=== PATIENT | male | born 1985 | race Caucasian/White ===

== ENCOUNTER 2017-08-16 21:13 | Emergency (ER) | payer MEDICAID, MEDICARE, OTHER ==
[~2017-08-16] VITALS: Ht 170.2 cm; Wt 77.1 kg
[~2017-08-16 21:13] MED LIST: ADV50100 IN; ALBU6.7H3 IH; ALBU8HFA IH; AMOX-115 PO; BENZ-16 PO; CEPH-571 PO; CLIN150C2 PO; GUAI600T PO; IBUP-1573 PO; IBUP-1984 PO; IVER3TAB2 PO; NAPR220C15 PO; NARDIL; PHEN15TA PO; PRED20TA PO
[2017-08-16] MEDS ORDERED: HYDR-3965 PO ×2 (22:07→22:13)
[2017-08-16 22:24] VITALS: BP 125/80
== END 2017-08-16 22:25 | disposition home or self-care (01) ==
LOC: ER 21:14
DX: M25.511 Pain in right shoulder (principal); G89.29 Other chronic pain; J45.909 Unspecified asthma, uncomplicated; F17.200 Nicotine dependence, unspecified, uncomplicated; Z79.899 Other long term (current) drug therapy; Z88.0 Allergy status to penicillin; Z88.1 Allergy status to other antibiotic agents; Z88.8 Allergy status to other drugs, medicaments and biological substances
CPT/HCPCS: 96372; 99283; J2270

== ENCOUNTER 2017-08-31 23:02 | Emergency (ER) | payer OTHER ==
[~2017-08-31] VITALS: Ht 170.2 cm; Wt 78.4 kg
[~2017-08-31 23:02] MED LIST changes: +HYDR-3965 PO
[2017-09-01] MEDS ORDERED: HYDROcodone/acetaminophen 10/325mg tab PO ONE (00:05)
[2017-09-01] MEDS ORDERED: orphenadrine citrate 60mg/2ml inj. IM ONE (00:05)
[2017-09-01] MEDS ORDERED: LIDO700A32 TOP (00:10)
[2017-09-01] MEDS ORDERED: DICL100G15 TOP (00:10)
[2017-09-01] MEDS ORDERED: CYCL-1 PO (00:10)
[2017-09-01] MEDS ORDERED: METH500T PO (01:14)
[2017-09-01 01:52] VITALS: BP 123/74
== END 2017-09-01 01:54 | disposition home or self-care (01) ==
LOC: ER 23:02
DX: M25.511 Pain in right shoulder (principal); J45.909 Unspecified asthma, uncomplicated; G89.29 Other chronic pain; Z88.1 Allergy status to other antibiotic agents; Z79.899 Other long term (current) drug therapy; Z56.0 Unemployment, unspecified
CPT/HCPCS: 96372; 99283; J2360

== ENCOUNTER 2018-08-05 07:11 | Day surgery (SDC) | payer MEDICARE, MEDICAID ==
[2018-08-02 15:21] LABS: BASOPHILS # (AUTO) 0.1 X10'3 (0-0.2); BASOPHILS % (AUTO) 0.8 % (0-1); EOSINOPHILS # (AUTO) 0.3 X10'3 (0-0.9); EOSINOPHILS % (AUTO) 4.4 % (0-6); LYMPHOCYTES # (AUTO) 1.9 X10'3 (1.1-4.8); MEAN CORPUSCULAR HEMOGLOBIN 32.5 PG (27.0-31.0); MEAN CORPUSCULAR HGB CONC 34.3 % (33.0-36.5); MEAN CORPUSCULAR VOLUME 94.7 FL (78-98); MEAN PLATELET VOLUME 7.8 FL (7.4-10.4); MONOCYTES # (AUTO) 0.5 X10'3 (0-0.9); MONOCYTES % (AUTO) 6.5 % (2-12); NEUTROPHILS # (AUTO) 4.6 X10'3 (1.8-7.7); NEUTROPHILS % (AUTO) 62.3 % (42-75); PRE OP HEMATOCRIT 50.7 % (42.0-52.0); PRE OP HEMOGLOBIN 17.4 g/dL (14.0-17.9); PRE OP PLATELET COUNT 264 X10'3 (140-440); RED BLOOD COUNT 5.35 X10'6 (4.70-6.10); RED CELL DISTRIBUTION WIDTH 11.9 % (11.5-14.5)
[2018-08-02 15:25] LABS: CLARITY,URINE CLEAR (Clear); COLOR,URINE YELLOW (Yellow); GLUCOSE, URINE NEGATIVE (Neg); KETONES,URINE NEGATIVE (Neg); LEUKOCYTE ESTERASE ,URINE NEGATIVE (Neg); NITRITES, URINE NEGATIVE (Neg); OCCULT BLOOD,URINE NEGATIVE (Neg); PROTEIN,URINE NEGATIVE (Neg); UROBILINOGEN,URINE 0.2 E.U/dL (0.2-1.0)
[2018-08-02 15:28] LABS: UA COLLECTION TYPE CLN CATCH MIDSTREAM
[2018-08-02 15:31] LABS: ALBUMIN 3.9 G/DL (3.4-5.0); ALBUMIN/GLOBULIN RATIO 1.1 (1.1-1.5); ALKALINE PHOSPHATASE 63 IU/L (46-116); BLOOD UREA NITROGEN 21 MG/DL (7-18); BUN/CREATININE RATIO 26.6 (5.4-32.0); CHLORIDE 103 MMOL/L (99-107); CREATININE 0.79 MG/DL (0.60-1.10); PRE OP ALT 48 U/L (30-65); PRE OP ANION GAP 5 (8-16); PRE OP AST 24 U/L (10-37); PRE OP BILIRUB, TOTAL 0.5 MG/DL (0.0-1.0); PRE OP GLUCOSE 92 MG/DL (70-104); PRE OP SODIUM 140 MMOL/L (135-145); TOTAL CARBON DIOXIDE 32.3 MMOL/L (24-32); TOTAL PROTEIN 7.4 G/DL (6.4-8.2); eGFR > 90 ML/MIN
[~2018-08-05] VITALS: Ht 170.2 cm; Wt 82.7 kg
[2018-08-05] VITALS (11 sets, daily range): BP systolic 120–167; BP diastolic 74–97
[~2018-08-05 07:11] MED LIST changes: -ADV50100 IN; -ALBU6.7H3 IH; -ALBU8HFA IH; -AMOX-115 PO; -BENZ-16 PO; -CEPH-571 PO; -CLIN150C2 PO; +DICL100G15 TOP; +FLO0.4C PO; -GUAI600T PO; -HYDR-3965 PO; -IBUP-1984 PO; -IVER3TAB2 PO; +LORA-269 PO; -NAPR220C15 PO; -NARDIL; -PHEN15TA PO; -PRED20TA PO; +TRAN10TA PO; +cefazolin/dext.iso 2gm/50ml 50 ML IV ONE; +famotidine 20mg tablet PO ONE; +ringers solution, lacted 1,000 ML IV SCH
[2018-08-05] MEDS ORDERED: LIDOcaine 1% (10mg/ml) 2ml vial ONE (07:33)
[2018-08-05] MEDS ORDERED: sevoflurane 250ml liquid IH ONE (09:50)
[2018-08-05] MEDS ORDERED: midazolam 2 mg/2 ml injection ONE (09:53)
[2018-08-05] MEDS ORDERED: fentaNYL/PF 50MCG/1 ML 2ML syringe ONE ×2 (09:53→10:55)
--- NOTE | 2018-08-05 11:00 | NUR ---
Received from OR via bed, accompanied by Anesthesiologist. Report received. Initial physical assessment done and recorded.
[2018-08-05] MEDS ORDERED: HYDROmorphone inj. 0.5 MG/0.5 ML DISP.SYRIN IV PRN ×2 (11:05)
[2018-08-05] MEDS ORDERED: ringers solution, lacted 1,000 ML IV SCH (11:05)
[2018-08-05] MEDS ORDERED: morphine 4 MG/ML inj SYRINge IV PRN ×2 (11:05)
[2018-08-05] MEDS ORDERED: ondansetron/PF 4mg/2ml inj IV PRN (11:05)
[2018-08-05] MEDS ORDERED: dexamethasone sod phosphate 4mg/ml inj. ONE (11:09)
[2018-08-05] MEDS ORDERED: rocuronium 10mg/ml inj IV ONE (11:09)
[2018-08-05] MEDS ORDERED: neostigmine methylsulfate 1 MG/ML 10ml vial ONE (11:09)
[2018-08-05] MEDS ORDERED: LIDOcaine 2% (20mg/ml) 5ml vial ONE (11:09)
[2018-08-05] MEDS ORDERED: glycopyrrolate 0.2mg/ml inj ONE (11:09)
[2018-08-05] MEDS ORDERED: propofol inj 20 ML IV ONE (11:09)
[2018-08-05] MEDS ORDERED: ondansetron/PF 4mg/2ml inj ONE (11:09)
[2018-08-05] MEDS ORDERED: HYDROcodone/acetaminophen 10/325mg tab PO ONE (11:20)
--- NOTE | 2018-08-05 12:30 | NUR ---
Discharge criteria met, discharge instructions given, demonstrates verbal understanding. Discharged home in good condition.
== END 2018-08-05 12:30 | disposition home or self-care (01) ==
LOC: PAS 07:11
PROVIDERS: ATTEND Surgery
DX: K80.10 Calculus of gallbladder with chronic cholecystitis without obstruction (principal); F17.210 Nicotine dependence, cigarettes, uncomplicated; M19.90 Unspecified osteoarthritis, unspecified site; Z88.8 Allergy status to other drugs, medicaments and biological substances; Z79.899 Other long term (current) drug therapy; J45.909 Unspecified asthma, uncomplicated; G47.30 Sleep apnea, unspecified; Z91.018 Allergy to other foods
CPT/HCPCS: 36415; 47562; 80053; 81003; 85025; J0690; J1100; J2001; J2250; J2405; J2704; J2710; J3010; J3490; J7120; 88304; A6251; A7000

== ENCOUNTER 2018-12-04 12:27 | Emergency (ER) | payer MEDICARE, MEDICAID ==
[~2018-12-04] VITALS: Ht 170.2 cm; Wt 81.8 kg
[~2018-12-04 12:27] MED LIST changes: -cefazolin/dext.iso 2gm/50ml 50 ML IV ONE; -famotidine 20mg tablet PO ONE; -ringers solution, lacted 1,000 ML IV SCH
[2018-12-04 12:37] VITALS: BP 139/89
[2018-12-04] MEDS ORDERED: ipratropium/albuterol 3ml nebule NEB ONE (14:10)
[2018-12-04] MEDS ORDERED: PRED50TA PO (15:05)
[2018-12-04] MEDS ORDERED: ALBU18HF2 INH (15:05)
== END 2018-12-04 15:28 | disposition home or self-care (01) ==
LOC: ER 12:27
DX: J30.2 Other seasonal allergic rhinitis (principal); J45.909 Unspecified asthma, uncomplicated; G89.29 Other chronic pain; F17.200 Nicotine dependence, unspecified, uncomplicated; Z56.0 Unemployment, unspecified; Z88.2 Allergy status to sulfonamides; Z88.1 Allergy status to other antibiotic agents; Z79.899 Other long term (current) drug therapy; Z90.49 Acquired absence of other specified parts of digestive tract
CPT/HCPCS: 71046; 94640; 94760; 99283

== ENCOUNTER 2019-09-17 23:00 | Emergency (ER) | payer MEDICARE, MEDICAID ==
[~2019-09-17] VITALS: Ht 167.6 cm; Wt 86.8 kg
[~2019-09-17 23:00] MED LIST changes: +ALBU18HF2 INH; +PRED50TA PO
[2019-09-17] MEDS ORDERED: ondansetron/PF 4mg/2ml inj IV ONE (23:25)
[2019-09-17] MEDS ORDERED: morphine 4 MG/ML inj SYRINge IV ONE (23:25)
--- NOTE | 2019-09-17 23:30 | NUR ---
U/S CALLED BACK AT [address]
[2019-09-18] MEDS ORDERED: CefTRIAXone 250MG IM Kit w/LIDOcaine IM ONE (00:30)
[2019-09-18] MEDS ORDERED: DOXY100C77 PO (00:45)
[2019-09-18 01:08] VITALS: BP 160/87
== END 2019-09-18 01:10 | disposition home or self-care (01) ==
LOC: ER 23:01
DX: N45.1 Epididymitis (principal); J45.909 Unspecified asthma, uncomplicated; G89.29 Other chronic pain; Z56.0 Unemployment, unspecified; Z90.49 Acquired absence of other specified parts of digestive tract; Z88.1 Allergy status to other antibiotic agents; Z79.899 Other long term (current) drug therapy; Z88.8 Allergy status to other drugs, medicaments and biological substances
CPT/HCPCS: 76870; 96372; 96374; 96375; 99285; J0696; J2270; J2405

== ENCOUNTER 2020-02-06 22:45 | Emergency (ER) | payer MEDICARE, MEDICAID ==
[~2020-02-06] VITALS: Ht 170.2 cm; Wt 88.6 kg
[2020-02-06 23:30] LABS: CLARITY,URINE CLEAR (Clear); COLOR,URINE YELLOW (Yellow); GLUCOSE, URINE NEGATIVE (Neg); KETONES,URINE NEGATIVE (Neg); LEUKOCYTE ESTERASE ,URINE NEGATIVE (Neg); NITRITES, URINE NEGATIVE (Neg); OCCULT BLOOD,URINE NEGATIVE (Neg); PROTEIN,URINE NEGATIVE (Neg); UROBILINOGEN,URINE 0.2 E.U/dL (0.2-1.0)
[2020-02-06 23:31] LABS: UA COLLECTION TYPE CLN CATCH MIDSTREAM
--- NOTE | 2020-02-07 01:09 | NUR ---
dr valera in room.
[2020-02-07] MEDS ORDERED: normal saline 1000ML IV soln IVB ONE (01:15)
[2020-02-07] MEDS ORDERED: acetaminophen 325mg tablet PO STA (01:16)
[2020-02-07] MEDS ORDERED: morphine 4 MG/ML inj SYRINge IV ONE (01:20)
[2020-02-07 01:59] LABS: BASOPHILS # (AUTO) 0.1 X10'3 (0-0.2); HEMOGLOBIN 16.5 g/dl (14.0-17.9); MEAN PLATELET VOLUME 7.3 FL (7.4-10.4); RED BLOOD COUNT 4.96 X10'6 (4.70-6.10); WHITE BLOOD COUNT 11.6 X10'3 (4.5-11.0)
[2020-02-07 02:01] LABS: BASOPHILS % (AUTO) 0.7 % (0-1); EOSINOPHILS # (AUTO) 0.5 X10'3 (0-0.9); HEMATOCRIT 46.7 % (42.0-52.0); LYMPHOCYTES # (AUTO) 3.4 X10'3 (1.1-4.8); LYMPHOCYTES % (AUTO) 29.1 % (21-51); MEAN CORPUSCULAR HEMOGLOBIN 33.2 PG (27.0-31.0); MEAN CORPUSCULAR HGB CONC 35.3 g/dL (33.0-36.5); MEAN CORPUSCULAR VOLUME 94.1 FL (78-98); MONOCYTES % (AUTO) 8.5 % (2-12); NEUTROPHILS # (AUTO) 6.7 X10'3 (1.8-7.7); NEUTROPHILS % (AUTO) 57.7 % (42-75); PLATELET COUNT 290 X10'3 (140-440)
[2020-02-07 02:07] LABS: ALANINE AMINOTRANSFERASE 30 U/L (12-78); ALBUMIN 3.7 G/DL (3.4-5.0); ALBUMIN/GLOBULIN RATIO 0.9 (1.1-1.5); ALKALINE PHOSPHATASE 81 IU/L (46-116); ANION GAP 5 (8-16); ASPARTATE AMINO TRANSFERASE 12 U/L (10-37); BILIRUBIN,TOTAL 0.4 MG/DL (0.1-1.0); BLOOD UREA NITROGEN 17 MG/DL (7-18); CALCIUM 8.5 MG/DL (8.5-10.1); CHLORIDE 106 MMOL/L (99-107); CREATININE 0.81 MG/DL (0.60-1.10); GLUCOSE 84 MG/DL (70-104); SODIUM 140 MMOL/L (135-145); TOTAL CARBON DIOXIDE 28.7 MMOL/L (24-32); TOTAL PROTEIN 7.6 G/DL (6.4-8.2); eGFR > 90 ML/MIN
[2020-02-07] MEDS: morphine 2 MG/ML inj. syringe IV PRN ×4 (02:42→05:05)
[2020-02-07] MEDS ORDERED: clindamycin 150mg capsule PO ONE (02:45)
[2020-02-07] MEDS ORDERED: DOXY-327 PO (05:12)
[2020-02-07] MEDS ORDERED: TRAN10TA2 PO (05:12)
[2020-02-07] MEDS ORDERED: DIAZ5TAB5 PO (05:12)
[2020-02-07] MEDS ORDERED: IBUP-1985 PO (05:12)
[2020-02-07] MEDS ORDERED: HYDR-3972 PO (05:12)
[2020-02-07] MEDS ORDERED: CLIN-97 PO (05:49)
[2020-02-07] MEDS ORDERED: HYDROcodone/acetaminophen 10/325mg tab PO ONE (05:55)
[2020-02-07 06:32] VITALS: BP 151/83
== END 2020-02-07 06:36 | disposition home or self-care (01) ==
LOC: ER 22:45
DX: T81.49XA Infection following a procedure, other surgical site, initial encounter (principal); N50.82 Scrotal pain; J45.909 Unspecified asthma, uncomplicated; G89.29 Other chronic pain; F41.9 Anxiety disorder, unspecified; F31.9 Bipolar disorder, unspecified; F17.200 Nicotine dependence, unspecified, uncomplicated; Z90.49 Acquired absence of other specified parts of digestive tract; Z98.890 Other specified postprocedural states; Z72.89 Other problems related to lifestyle; Z56.0 Unemployment, unspecified; Z79.2 Long term (current) use of antibiotics; Z79.899 Other long term (current) drug therapy
CPT/HCPCS: 36415; 76870; 80053; 81003; 83605; 84145; 85025; 87040; 87070; 87077; 87186; 93976; 96374; 96376; 99285; J2270; J7030; 96375

== ENCOUNTER 2020-02-23 08:50 | Day surgery (SDC) | payer MEDICARE, MEDICAID ==
[~2020-02-23 08:50] MED LIST changes: +CEFD300C3 PO; +DIAZ5TAB5 PO; -DICL100G15 TOP; -FLO0.4C PO; +HYDR-3972 PO; +HYDR-4383 PO; -IBUP-1573 PO; +IBUP-1985 PO; +LACT1CAP26 PO; -LORA-269 PO; -PRED50TA PO; -TRAN10TA PO; +TRAN10TA2 PO
[2020-02-23] MEDS ORDERED: LIDOcaine 2% 5ml jelly ONE (09:39)
== END 2020-02-23 10:00 | disposition home or self-care (01) ==
LOC: WOUND CARE 08:50
PROVIDERS: ATTEND Nurse Practitioner
DX: T81.89XA Other complications of procedures, not elsewhere classified, initial encounter (principal); L98.492 Non-pressure chronic ulcer of skin of other sites with fat layer exposed; M19.90 Unspecified osteoarthritis, unspecified site; N43.3 Hydrocele, unspecified; G89.29 Other chronic pain; G47.31 Primary central sleep apnea; J45.909 Unspecified asthma, uncomplicated; F32.9 Major depressive disorder, single episode, unspecified; F41.8 Other specified anxiety disorders; F17.210 Nicotine dependence, cigarettes, uncomplicated; Z86.14 Personal history of Methicillin resistant Staphylococcus aureus infection; Z90.49 Acquired absence of other specified parts of digestive tract; Z79.899 Other long term (current) drug therapy; Z79.2 Long term (current) use of antibiotics; Z98.890 Other specified postprocedural states; Y83.8 Other surgical procedures as the cause of abnormal reaction of the patient, or of later complication, without mention of misadventure at the time of the procedure; Y92.238 Other place in hospital as the place of occurrence of the external cause
CPT/HCPCS: 97597

== ENCOUNTER 2020-03-01 10:28 | Day surgery (SDC) | payer MEDICARE, MEDICAID ==
[2020-03-01] MEDS ORDERED: LIDOcaine 2% 5ml jelly ONE (10:53)
== END 2020-03-01 11:47 | disposition home or self-care (01) ==
LOC: WOUND CARE 10:28
PROVIDERS: ATTEND Nurse Practitioner
DX: T81.89XD Other complications of procedures, not elsewhere classified, subsequent encounter (principal); L98.492 Non-pressure chronic ulcer of skin of other sites with fat layer exposed; M19.90 Unspecified osteoarthritis, unspecified site; N43.3 Hydrocele, unspecified; G89.29 Other chronic pain; G47.31 Primary central sleep apnea; J45.909 Unspecified asthma, uncomplicated; F32.9 Major depressive disorder, single episode, unspecified; F41.8 Other specified anxiety disorders; F17.210 Nicotine dependence, cigarettes, uncomplicated; Z86.14 Personal history of Methicillin resistant Staphylococcus aureus infection; Z90.49 Acquired absence of other specified parts of digestive tract; Z79.899 Other long term (current) drug therapy; Z79.2 Long term (current) use of antibiotics; Z98.890 Other specified postprocedural states; Y83.8 Other surgical procedures as the cause of abnormal reaction of the patient, or of later complication, without mention of misadventure at the time of the procedure
CPT/HCPCS: 97597

== ENCOUNTER 2020-03-22 10:39 | Day surgery (SDC) | payer MEDICARE, MEDICAID | END 2020-03-22 11:34 | disposition home or self-care (01) | LOC: WOUND CARE 10:39 | PROVIDERS: ATTEND Nurse Practitioner | DX: T81.89XD Other complications of procedures, not elsewhere classified, subsequent encounter (principal); L98.492 Non-pressure chronic ulcer of skin of other sites with fat layer exposed; M19.90 Unspecified osteoarthritis, unspecified site; N43.3 Hydrocele, unspecified; G89.29 Other chronic pain; G47.31 Primary central sleep apnea; J45.909 Unspecified asthma, uncomplicated; F32.9 Major depressive disorder, single episode, unspecified; F41.8 Other specified anxiety disorders; F17.210 Nicotine dependence, cigarettes, uncomplicated; Z86.14 Personal history of Methicillin resistant Staphylococcus aureus infection; Z90.49 Acquired absence of other specified parts of digestive tract; Z79.899 Other long term (current) drug therapy; Z79.2 Long term (current) use of antibiotics; Z98.890 Other specified postprocedural states; Y83.8 Other surgical procedures as the cause of abnormal reaction of the patient, or of later complication, without mention of misadventure at the time of the procedure | CPT/HCPCS: 97597 ==

== ENCOUNTER 2020-03-29 09:27 | Outpatient (CLI) | payer MEDICARE, MEDICAID ==
[~2020-03-29 09:27] MED LIST changes: -CEFD300C3 PO
== END 2020-03-29 11:01 | disposition home or self-care (01) ==
LOC: WOUND CARE 09:27
PROVIDERS: ATTEND Nurse Practitioner
DX: T81.89XD Other complications of procedures, not elsewhere classified, subsequent encounter (principal); L98.492 Non-pressure chronic ulcer of skin of other sites with fat layer exposed; M19.90 Unspecified osteoarthritis, unspecified site; N43.3 Hydrocele, unspecified; G89.29 Other chronic pain; G47.31 Primary central sleep apnea; J45.909 Unspecified asthma, uncomplicated; F32.9 Major depressive disorder, single episode, unspecified; F41.8 Other specified anxiety disorders; F17.210 Nicotine dependence, cigarettes, uncomplicated; Z86.14 Personal history of Methicillin resistant Staphylococcus aureus infection; Z90.49 Acquired absence of other specified parts of digestive tract; Z79.899 Other long term (current) drug therapy; Z79.2 Long term (current) use of antibiotics; Z98.890 Other specified postprocedural states; Y83.8 Other surgical procedures as the cause of abnormal reaction of the patient, or of later complication, without mention of misadventure at the time of the procedure
CPT/HCPCS: G0463

== ENCOUNTER 2020-06-20 18:20 | Emergency (ER) | payer MEDICARE, MEDICAID ==
[~2020-06-20] VITALS: Ht 170.2 cm; Wt 95.8 kg
[2020-06-20 18:26] VITALS: BP 140/95
[2020-06-20] MEDS ORDERED: CEPH250T PO (19:07)
== END 2020-06-20 19:16 | disposition home or self-care (01) ==
LOC: ER 18:21
DX: L05.91 Pilonidal cyst without abscess (principal); J45.909 Unspecified asthma, uncomplicated; G89.29 Other chronic pain; F41.9 Anxiety disorder, unspecified; F31.9 Bipolar disorder, unspecified; Z90.89 Acquired absence of other organs; Z90.49 Acquired absence of other specified parts of digestive tract; Z98.890 Other specified postprocedural states; Z72.89 Other problems related to lifestyle; Z56.0 Unemployment, unspecified; Z88.1 Allergy status to other antibiotic agents; Z88.8 Allergy status to other drugs, medicaments and biological substances; Z79.2 Long term (current) use of antibiotics; Z79.899 Other long term (current) drug therapy
CPT/HCPCS: 10080; 99283

== ENCOUNTER 2021-08-19 11:53 | Emergency (ER) | payer MEDICARE, MEDICAID ==
[~2021-08-19] VITALS: Ht 167.6 cm; Wt 89.7 kg
[2021-08-19 12:47] LABS: ALANINE AMINOTRANSFERASE 46 U/L (12-78); ALBUMIN 3.7 G/DL (3.4-5.0); ALKALINE PHOSPHATASE 76 IU/L (46-116); ANION GAP 9 (8-16); ASPARTATE AMINO TRANSFERASE 27 U/L (10-37); BILIRUBIN,TOTAL 0.5 MG/DL (0.1-1.0); BLOOD UREA NITROGEN 18 MG/DL (7-18); BUN/CREATININE RATIO 23.7 (5.4-32.0); CALCIUM 8.7 MG/DL (8.5-10.1); CHLORIDE 103 MMOL/L (99-107); CREATININE 0.76 MG/DL (0.60-1.10); GLUCOSE 142 MG/DL (70-104); SODIUM 138 MMOL/L (135-145); TOTAL CARBON DIOXIDE 25.8 MMOL/L (24-32); TOTAL PROTEIN 7.3 G/DL (6.4-8.2); eGFR > 90 ML/MIN
[2021-08-19 13:11] LABS: BASOPHILS # (AUTO) 0.1 X10'3 (0-0.2); BASOPHILS % (AUTO) 0.9 % (0-1); EOSINOPHILS # (AUTO) 0.3 X10'3 (0-0.9); HEMATOCRIT 51.1 % (42.0-52.0); LYMPHOCYTES % (AUTO) 27.2 % (21-51); MEAN CORPUSCULAR HEMOGLOBIN 32.9 PG (27.0-31.0); MEAN CORPUSCULAR HGB CONC 35.3 g/dL (33.0-36.5); MEAN CORPUSCULAR VOLUME 93.2 FL (78-98); MONOCYTES # (AUTO) 0.5 X10'3 (0-0.9); MONOCYTES % (AUTO) 6.8 % (2-12); NEUTROPHILS # (AUTO) 4.5 X10'3 (1.8-7.7); NEUTROPHILS % (AUTO) 61.1 % (42-75); PLATELET COUNT 250 X10'3 (140-440); RED BLOOD COUNT 5.48 X10'6 (4.70-6.10); RED CELL DISTRIBUTION WIDTH 12.9 % (11.5-14.5); WHITE BLOOD COUNT 7.4 X10'3 (4.5-11.0)
--- NOTE | 2021-08-19 13:16 | NUR ---
LAB CALLED [facility] 18.0
--- NOTE | 2021-08-19 13:19 | NUR ---
INFORMED DR. JIN OF [facility] 18
[2021-08-19] MEDS ORDERED: NAPR-56 PO (19:07)
[2021-08-19] MEDS ORDERED: HYDR-3965 PO (19:07)
[2021-08-19] MEDS: HYDROcodone/acetaminophen 5mg/325mg tablet PO ONE (19:18)
[2021-08-19 19:19] VITALS: BP 144/78
== END 2021-08-19 19:20 | disposition home or self-care (01) ==
LOC: ER 11:53
DX: N50.811 Right testicular pain (principal); J45.909 Unspecified asthma, uncomplicated; G89.29 Other chronic pain; Z90.49 Acquired absence of other specified parts of digestive tract; Z56.0 Unemployment, unspecified; Z88.2 Allergy status to sulfonamides; Z88.1 Allergy status to other antibiotic agents; Z88.8 Allergy status to other drugs, medicaments and biological substances; Z79.899 Other long term (current) drug therapy; Z72.89 Other problems related to lifestyle
CPT/HCPCS: 36415; 76870; 80053; 85025; 93976; 99284

== ENCOUNTER 2023-05-24 09:26 | Emergency (ER) | payer MEDICARE, MEDICAID ==
[~2023-05-24] VITALS: Ht 170.2 cm; Wt 82.7 kg
[2023-05-24 09:47] VITALS: BP 137/94; PULSE 86; RESP 20; TEMP 98.2; O2SAT 97
[2023-05-24] MEDS ORDERED: methylPREDNISolone sod succ 125mg/2ml vial IM ONE (11:20)
[2023-05-24] MEDS ORDERED: AZIT250T82 PO (11:31)
[2023-05-24] MEDS ORDERED: ALBU6.7H14 INH (11:31)
== END 2023-05-24 12:09 | disposition home or self-care (01) ==
LOC: ER 09:26
DX: J06.9 Acute upper respiratory infection, unspecified (principal); I10 Essential (primary) hypertension; J45.909 Unspecified asthma, uncomplicated; F31.9 Bipolar disorder, unspecified; F17.200 Nicotine dependence, unspecified, uncomplicated; Z88.2 Allergy status to sulfonamides; Z88.1 Allergy status to other antibiotic agents; Z91.018 Allergy to other foods; Z79.2 Long term (current) use of antibiotics; Z79.1 Long term (current) use of non-steroidal anti-inflammatories (NSAID); Z90.49 Acquired absence of other specified parts of digestive tract
CPT/HCPCS: 71045; 96372; 99283; J2930

== ENCOUNTER 2023-05-26 17:56 | Emergency (ER) | payer MEDICARE, MEDICAID ==
[~2023-05-26] VITALS: Ht 170.2 cm; Wt 86.0 kg
[~2023-05-26 17:56] MED LIST changes: +ALBU6.7H14 INH; +AZIT250T82 PO
[2023-05-26 18:24] VITALS: TEMP 97.1
[2023-05-26 20:11] VITALS: BP 127/87; PULSE 79; RESP 22; O2SAT 92
[2023-05-26] MEDS ORDERED: ketorolac trometh inj. 60 MG/2 ML VIAL IM ONE (21:30)
[2023-05-26] MEDS ORDERED: CefTRIAXone 1000mg IM Kit (w/lidocaine diluent) IM ONE (21:30)
[2023-05-26] MEDS ORDERED: CEFD300C3 PO (21:35)
== END 2023-05-26 22:33 | disposition home or self-care (01) ==
LOC: ER 17:58
DX: J40 Bronchitis, not specified as acute or chronic (principal); J45.909 Unspecified asthma, uncomplicated; I10 Essential (primary) hypertension; F31.9 Bipolar disorder, unspecified; Z90.49 Acquired absence of other specified parts of digestive tract; Z88.2 Allergy status to sulfonamides; Z88.1 Allergy status to other antibiotic agents; Z79.899 Other long term (current) drug therapy
CPT/HCPCS: 96372; 99284; J0696; J1885

== ENCOUNTER 2025-04-28 14:47 | Outpatient (CLI) | payer MEDICARE, MEDICAID ==
[~2025-04-28 14:47] MED LIST changes: -AZIT250T82 PO; -IBUP-1985 PO; +IBUP600T52 PO; +TRAN10TA PO; -TRAN10TA2 PO
--- NOTE | 2025-04-28 20:22 | RADIOLOGY REPORT ---
CLINICAL HISTORY: LABILE BLOOD PRESSURE TECHNIQUE: CT abdomen was performed without intravenous contrast. This exam was performed according to our departmental dose optimization program. Up-to-date CT equipment and radiation dose reduction techniques are utilized as appropriate. CTDI: 24.87+ 0.14 DLP: 847.86 WID: COMPARISON: None FINDINGS: Lower Thorax: Unremarkable. Liver and Biliary system: Prior cholecystectomy. Otherwise unremarkable. Spleen: Unremarkable. Adrenal Glands and Kidneys: Unremarkable. Pancreas and Retroperitoneum: Unremarkable. Aorta and Major Vessels: Unremarkable. Bowel, Mesentery and Peritoneal space: Unremarkable. Abdominal wall and Osseous Structures: Mild multilevel lower thoracic and lumbar spondylosis. No destructive osseous lesion. IMPRESSION: 1. No noncontrast evidence of acute abnormality.
== END 2025-04-28 23:59 | disposition home or self-care (01) ==
LOC: RAD 14:47
PROVIDERS: ATTEND Family Medicine
DX: R09.89 Other specified symptoms and signs involving the circulatory and respiratory systems (principal); M47.815 Spondylosis without myelopathy or radiculopathy, thoracolumbar region; Z90.49 Acquired absence of other specified parts of digestive tract
CPT/HCPCS: 74150

== ENCOUNTER 2025-06-02 02:55 | Emergency (ER) | payer MEDICARE, MEDICAID ==
[~2025-06-02] VITALS: Ht 170.2 cm; Wt 78.0 kg
--- NOTE | 2025-06-02 04:00 | Physician Documentation ---
History of Present Illness ~ Chief Complaint: Ear Pain Stated Complaint: MULTIPLE COMPLAINTS Time Seen by MD: 03:59 Primary Medical Doctor: DR LIVE HPI Patient presents to the emergency room with URI symptoms over the past 2-3 weeks which are worsening. Significant congestion and pain to his sinus area. No fevers. Patient has also describing various shocking like pains all over his body. He has been worked up for MS previously in his negative. He has been referred to a neurologist. Medication Reconciliation Allergies: Coded Allergies: sulfamethoxazole (Verified Allergy, Mild, RASH, 05/26/23) trimethoprim (Verified Allergy, Mild, RASH, 05/26/23) levofloxacin (Verified Allergy, Unknown, RASH, KIDNEY PAIN, NEUROPATHY, 05/26/23) amoxicillin (Verified Adverse Reaction, Mild, DEPRESSION, 05/26/23) Uncoded Allergies: APPLES, CARROTS, CHERRIES (Allergy, Unknown, 08/02/18) CIPRO (Allergy, Unknown, "KIDNEY PAIN", 02/17/20) Scheduled Albuterol Sulfate (Ventolin Hfa), 2 PUFFS INH Q4HPRN Albuterol Sulfate (Proventil Hfa), 2 PUFFS INH Q6H Hydrocodone/Acetaminophen ([place] 5-325 Tablet), 1 TAB PO TID PRN Lactobacillus Rhamnosus (Culturelle), 10,000 MMU PO Q12H Tranylcypromine Sulfate (Tranylcypromine Sulfate), 1 TAB PO DAILY, (Reported) Scheduled PRN Diazepam (Diazepam), 5 MG PO DAILY PRN for for anxiety/agitation, (Reported) Hydrocodone Bit/Acetaminophen (Hydrocodon-Acetaminophn 10-325 tablet), 1 TAB PO Q6H PRN for pain, (Reported) Ibuprofen (Ibuprofen), 600 MG PO Q6H PRN for pain, (Reported) Past Medical History Past Medical History: Hypertension, Asthma, Chronic Pain, Anxiety, Bipolar, Depression Past Surgical History: appendectomy, cholecystectomy, orthopedic surgeries Other Past Surgical History: Varicocelectomy, hydrocele removal Alcohol Use: Occasionally Drug Use: none Lives with: Spouse Lives In: Home Occupation: unemployed Review of Systems ROS All review of systems negative except as per HPI Physical Exam Vital Signs: Temperature: 98.0, Source: Oral, Heart Rate: 68, Respiratory Rate: 18, BP: 166/101, Pulse Oximetry: 97, Weight: 78.000 Oxygen Flow Rate: 0 Physical Exam General: Patient is awake, alert, oriented x4 in no acute distress and well appearing.~ Head: Normocephalic and atraumatic. Eyes: Conjunctival normal. EOMI. PERRL. ENT: Mucous membranes moist. Tympanic membranes clear Neck: Supple, trachea is midline. Chest: Clear to auscultation bilaterally without rales, rhonchi, or wheezes. There is no accessory muscle use or retractions. Cardiac: RRR without murmurs, gallops, or rubs. Progress Results/Orders Results/Orders Vital Signs 06/02/25 06/02/25 03:11 03:21 Temp 98.0 98.0 Pulse 70 68 Resp 22 18 B/P (MAP) 216/101 166/101 (122) Pulse Ox 99 97 O2 Flow Rate 0 Medical Decision Making Additional information obtaine: old records Findings Patient presents to the emergency room with multiple medical complaints ranging from facial pain to forehead pain to the top of his head pain to ear pain to shocking pains that go throughout his body. Patient does endorse URI symptoms that seemed to be getting worse. That has he does have tenderness to palpation to his sinuses I will treat him for URI/sinusitis. He has a neurologist and excellent follow up. I do not feel emergent labs or imaging is necessary Ear Diff. Dx: Considerations: Include: Abrasion, Cerumen impaction, Foreign body, Otitis externa, Barotrauma, Otitis media, Perforation, Referred pain- dental, Referred pain-pharyngitis, Referred pain-sinusitis, Referred pain-TMJ syn., Tympanic Membrane Injury, Other Eye Diff. Dx: Considerations: Include: [place], Conjuctivits-allergic, Conju ctivitis-bacterial, Conjuctivits-chlamydial, Conjuctivitis-viral, Corneal abrasion, Corneal laceration, Corneal ulceration, Foreign body-conjuctiva, Foreign body-corneal, Foreign body-intraocular, Foreign body-lid, Glaucoma, Globe rupture, Hordeolum, Iritis, Orbital cellulitis, Periobital cellulitis, Retinal artery occulsion, Retinal vein occlusion, Rust ring, Subconjunctival hem, Ultraviolet keratitis, Uveitis, Vitreous hemorrhage, Other Nose Diff. Dx: Considerations: Include: Abrasion, Anterior nasal bleed, Avulsion, Contusion, Coagulopathy, Fracture-nasal bone, Fracture-septum, Hypertension, Laceration, Other, Posterior nasal bleed, Retained foreign body, Septal hematoma Tooth Diff. Dx: Considerations: Include: Alveolar fracture, Aveolar osteitis, ANUG, Facial cellulitis, Periapical abscess, Periodontal abscess, Post- extraction bleeding, Pulpitis, Trigeminal neuralgia, Tooth-avulsion, Tooth- eruption, Tooth-fracture, Tooth-subluxation, Other Throat Diff Dx: Considerations: Include: AIDS, Epiglottitis, Esophageal candidiasis, Hand foot mouth disease, Herpangina, Herpetic stomatitis, Herpes simplex, Infection mononucleosis, Immunodeficiency, Ryan's angina, Peritonsillar abscess, Peritonsillar cellulitis, Pharyngitis-diphtheria, Pharyngitis-strepococcal, Pharyngitis-viral, Thrush, URI, Other Departure Disposition: 01 HOME / SELF CARE / HOMELESS Impression: Primary Impression: Sinusitis Condition: Stable Discharge Instructions: Upper Respiratory Infection, Adult Referrals: NO PRIMARY CARE PROVIDER (PCP) Prescriptions Azithromycin (Zithromax) 250 Mg Tablet 250 MG PO DAILY, #6 TAB Take 2 tabs on day one, one tab daily thereafter Prov: JAVI LANGSTON MD 06/02/25 Signature Scribe Signature: No scribe Attestation: The note accurately reflects work and decisions made by me.Javi Langston MD 06/02/25 04:13 JAVI LANGSTON MD Jun 02, 2025 04:00
[2025-06-02] MEDS ORDERED: AZIT-164 PO (04:13)
[2025-06-02] MEDS: HYDROcodone/acetaminophen 5mg/325mg tablet PO ONE (04:48)
[2025-06-02 04:50] VITALS: BP 134/85; PULSE 63; RESP 18; TEMP 98; O2SAT 100
== END 2025-06-02 04:54 | disposition home or self-care (01) ==
LOC: ER 02:56
DX: J32.9 Chronic sinusitis, unspecified (principal); F31.9 Bipolar disorder, unspecified; G89.29 Other chronic pain; I10 Essential (primary) hypertension; F41.9 Anxiety disorder, unspecified; J45.909 Unspecified asthma, uncomplicated; Z88.2 Allergy status to sulfonamides; Z88.1 Allergy status to other antibiotic agents; Z90.49 Acquired absence of other specified parts of digestive tract; Z79.899 Other long term (current) drug therapy; Z56.0 Unemployment, unspecified; Z72.89 Other problems related to lifestyle; Z98.890 Other specified postprocedural states
CPT/HCPCS: 99283